=== PATIENT | female | born 1945 | race Caucasian/White ===

== ENCOUNTER 2017-07-29 07:09 | Inpatient (IN) | payer MEDICARE, OTHER ==
[~2017-07-29] VITALS: Ht 165.1 cm; Wt 72.6 kg
[~2017-07-29 07:09] MED LIST: ACETAMINOPHEN650 M3 PO; ARTHRITIS PAIN650 M1 PO; AUGMENTIN 875-1 EACH PO; CIPROFLOXACIN500 MG PO; COQ-10100 MG PO; DIGESTIVE PROB250 MG PO; DITROPAN XL10 MG PO; FLUOCINONIDE-E15 GM TOP; GLUCOSAMINE1000 MG PO; INTRINSI B12-F1 EACH PO; MACULAR HEALTH1 EACH PO; MACULAR VITAMI1 EACH PO; MILK THISTLE175 M2 PO; NITROFURANTOIN50 MG PO; NORCO 5-325 TA1 EACH PO; OMEGA 3-6-9 CO400 MG PO; OXYBUTYNIN CHLO10 MG PO; OXYBUTYNIN CHLOR5 MG PO; PREVACID15 MG PO; PROOMEGA; STELARA45 MG/0.1 SUB-Q; SULFASALAZINE500 MG PO; TYLENOL WITH C1 EACH PO; VITAMIN D-32000 UNIT PO; VITAMIN D2000 UNIT PO; [UNRECOGNIZED DRUG - OTHER]; [UNRECOGNIZED DRUG - OTHER]; [UNRECOGNIZED DRUG - OTHER] PO; [UNRECOGNIZED DRUG - OTHER] PO
--- NOTE | 2017-07-29 10:29 | NUR ---
07/29/17 Garrett9 Eunice Gonsalez 1023-PATIENT ARRIVED TO PACU ON 4L NC O2 SAT 100% PATIENT NONAROUSBALE. DRESSING TO ABDOMEN GAUZE AND TAPE CDI ICE APPLIED. BP 174/76 JAYLEEN CREW DISPATCHER AWARE NO NEW ORDERS. 1028-PATIENT MOANS TO VERBAL STIMULI AND FALLS BACK ASLEEP. EYES CLOSED.
--- NOTE | 2017-07-29 11:58 | NUR ---
RECIEVED REPORT FROM GIOVANNI. PT RESTING IN BED. DROWSY BUT EASILY AROUSABLE. AT BEDSIDE. PT RATES PAIN 04/03. DILAUDID DAIRY HUSBANDRY TEACHER SET UP. IVF INFUSING. ABX ADMINISTERED. SCDS IN PLACE. CUP OF ICE GIVEN. DRESSING INTACT. MINIMAL SHADOWING NOTED ON DISTAL END. PT DENIES FURTHER NEEDS. CALL PACK IN REACH.
--- NOTE | 2017-07-29 13:29 | NUR ---
PT RESTING IN BED. FAMILY IN ROOM. ICE CHIPS GIVEN. IVF INFUSING. ENCOURAGED USE OF TRANSPORTATION ATTENDANT. PT STATES HER ABD "STILL HURTS," BUT IT "COMES AND GOES." CALL PACK IN REACH.
--- NOTE | 2017-07-29 14:11 | NUR ---
MET WITH PT'S TIERNEY. HE WAS UPSET, AND INFORMED ME THAT DURING SCOPE, HER BOWEL WAS PERFORATED-SUBSEQUENTLY SHE WAS TAKEN RIGHT TO SURGERY. HAD PRAYER WITH TIERNEY, LET HIM VENT. WILL CONTINUE TO FOLLOW. HE HAD NOTIFIED FAMILY
--- NOTE | 2017-07-29 14:14 | NUR ---
CHECKED ON PT IN RM FOLLOWING SURGERY. FAMILY AND HER BLOW DOWN OPERATOR WERE PRESENT. SHE WAS GROGGY, BUT AWARE OF MY PRESENCE. RN MICHAEL CAME IN AND CHECKED ON HER PAIN, INSTRUCTED ON USING PHOSPHORIC ACID SUPERVISOR. SHE WAS VERY GOOD WITH PT AND HER . WILL CONTINUE TO FOLLOW NEEDED
--- NOTE | 2017-07-29 15:31 | NUR ---
PT'S RR 8-10 BREATHS PER MIN. CALLED MD. CHANGED SETTINGS ON RURAL ELECTRIFICATION ENGINEER. PT STATES PAIN AT A TOLERABLE LEVEL. PT AND FAMILY DENY NEEDS AT THIS TIME. CALL RAMONE IN REACH.
--- NOTE | 2017-07-29 16:37 | NUR ---
PT FEELING NAUSEOUS. ZOFRAN ADMINISTERED WITH NO EFFECT. CALLED MD TO OBTAIN NEW ORDER. WAITING ELECTROPLATING TECHNICIAN BACK. NOT ADMINISTERING PHENERGAN DUE TO RR OF 8.
--- NOTE | 2017-07-29 17:03 | NUR ---
PT'S RR AT 5. CALLED DR. DECKER. OBTAINED ORDER TO D/C ENVIRONMENTAL CONTROL ADMINISTRATOR AND GO BACK TO OLD DILAUDID ORDER THAT HAD BEEN D/C WHEN ENVIRONMENTAL CONTROL ADMINISTRATOR WAS INITIATED. PT STATES NAUSEA IS BETTER. CALL PACK IN REACH.
--- NOTE | 2017-07-29 18:03 | NUR ---
PT STATES SHE IS FEELING NAUSEOUS AGAIN AND WOULD LIKE SOME MEDICATION. ADMINISTERED REGLAN. CALL PACK IN REACH.
--- NOTE | 2017-07-29 19:00 | NUR ---
PT APPEARS MORE AWAKE. STATES SHE FEEL "MUCH BETTER." NO C/O NAUSEA OR PAIN. PT RESTING WITH FAMILY IN ROOM. REPORT GIVEN TO NIGHT NURSES. FAMILY AND PATIENT DENY NEEDS. IVF INFUSING. CALL PACK IN REACH.
--- NOTE | 2017-07-29 19:20 | NUR ---
SHIFT REPORT RECIEVED. PATIENT RESTING IN BED. FAMILY IN ROOM. DENIES NEEDS AT THIS TIME. CALL LIGHT IN REACH.
--- NOTE | 2017-07-29 20:05 | NUR ---
EVENING MEDS GIVEN PER ORDER. PATIENT ASSESSMNET COMPLETED AND DOCUMENTED. PATIENT AAOX3. LUNG SOUNDS CLEAR. ABD SOFT, TENDER AT INCISION ONLY, BOWEL SOUNDS ACTIVE. MIDLINE DRESSING INTACT, SOME SHADOWING NOTICED AT DISTAL END OF DRESSING. OUTLINE SHADOWING. WILL CONTINUE TO MONITOR. PULSE OX 98% ON 1L NC. IVF INFUSING, SITE WNL. SCDS IN PLACE. PATIENT DENIES NAUSEA. RATED PAIN AT 5/10. PRN PAIN MEDS GIVEN. FAMILY IN ROOM. WARM BLANKET PROVIDED. NO FURTHER NEEDS AT THIS TIME. CALL LIGHT IN REACH. BED ALARM ON.
--- NOTE | 2017-07-29 22:45 | NUR ---
PATIENT RESTING IN BED. FAMILY HAS LEFT. CARRI OX, 98% ON 1L NC. PATIENT STATES SHE FEELS MUCH BETTER, RATED PAIN AT 3/10. CALL LIGHT IN REACH. BED ALARM ON. DENIES NEEDS AT THIS TIME.
--- NOTE | 2017-07-30 00:02 | NUR ---
patient resting in bed. requested prn pain meds, pain rated 6/10. prn meds given per order. pulse ox, 98% on 1l nc. will reassess. call light in reach.
--- NOTE | 2017-07-30 00:58 | NUR ---
PATIENT REQUEST PRN PAIN MEDS. RATED PAIN AT 5/10 IN ABD. PRN PAIN MEDS GIVEN PER ORDER. PATIENT STATES HER SHOULDER IS SORE WELL. HEAT PACK PROVIDED. PATIENT DENIES NAUSEA. RR14. PULSE OX 98% ON 1L NC. CALL LIGHT IN REACH.
--- NOTE | 2017-07-30 02:10 | NUR ---
PATIENT RESTING IN BED. AROUSES WHEN RN ENTERED ROOM. DENIES NEEDS AT THIS TIME. PULSE OX 98% ON 1L NC. RR 14. CALL LIGHT IN REACH.
--- NOTE | 2017-07-30 04:13 | NUR ---
PATIENT URINE OUTPUT ON LOW SIDE OF PERAMETERS. BLADDER SCAN ATTEMPTED, MIDLINE DRESSING DOES NOT ALLOW FOR ADEQUATE SCAN. OCHOA READJUSTED, OUTPUT IMPROVED. WILL CONTINUE TO MONITOR. PATIENT REPORTS 6/10 PAIN, PRN PAIN MEDS GIVEN. PULSE OX 97% ON 1L NC.
--- NOTE | 2017-07-30 05:20 | NUR ---
PATIENT RESTED ON AND OFF THROUGHOUT SHIFT. MIDLINE DRESSING INTACT, SOME SHADOWING NOTICED ON DRESSING. MARKER FOR REFERENCE. PAIN MANAGED WITH IV PAIN MEDS X4. PATIENT AAOX3. LUNGS CLEAR. PULSE OX, O2 94-98%. 1L NC WHEN SLEEPING. ABD SOFT, TENDER AT INCISION SITE, BOWEL SOUNDS ACTIVE. OCHOA IN PLACE, OUTPUT LOWER SIDE OF PARAMETERS. IFV INFUSING, SITE WNL. DENIED NAUSEA. NPO W/1 CUP ICE Q8H & HARD CANDY. SCDS. PATIENT HAS NOT BEEN OUT OF BED.
--- NOTE | 2017-07-30 06:47 | NUR ---
DR. DECKER CALLED BACK TO RETURN YRN'S CALL. SINCE YRN WAS UNAVAILABLE, I SPOKE WITH HIM AND INFORMED HIM THAT PT ONLY HAD 90ML OF URINE OUTPUT FOR LAST 4 HOURS. RECEIVED NEW ORDERS FOR : ONE TIME LR BOLUS, OVER 4 HOURS AND TO INCREASE IVF TO 150ML/HR.
--- NOTE | 2017-07-30 06:56 | NUR ---
PATIENT REQUESTED PRN PAIN MEDICATION. PATIENT RATES PAIN AT A 7/10 IN HER MID ABD. PATIENT GIVEN PRN PAIN MEDICATION PER ORDER.
--- NOTE | 2017-07-30 07:14 | NUR ---
RECIEVED BEDSIDE REPORT FROM KENNA POOL AND KENNA PANIAGUA. PT AWAKE AND ALERT IN BED WITH AT BEDSIDE. SCANT AMOUNT OF RED DISCHARGE WITHIN OUTLINE ON ABD DRESSING. IV BOLUS RUNNING.
--- NOTE | 2017-07-30 08:29 | NUR ---
IV FLUIDS CHANGED DUE TO COMPATIBILITY. WILL CHANGE BACK ONCE ABX ARE COMPLETE.
--- NOTE | 2017-07-30 10:29 | OR ---
[facility] [place] [address], [place] [address] Signed DATE OF PROCEDURE: 07/29/17 PREOPERATIVE DIAGNOSES Screening. Perforated colon (rectosigmoid junction). POSTOPERATIVE DIAGNOSES Screening. Perforated colon (rectosigmoid junction). PROCEDURE Limited colonoscopy. Laparotomy. Colorrhaphy x1. ESTIMATED BLOOD LOSS: None. FINDINGS Payam had an abrupt angulation at the rectosigmoid junction. We had tried to pass the scope through that area and we did notice the colon was a little thin and even with gentle pressure we felt the scope give and then we saw some blood and we knew we had a perforation. I went out and explained this to her in detail. We took her immediately down the hallway to the OR and in the OR she had some adhesions of her sigmoid colon to her left fallopian tube and left pelvic sidewall and it created shape of a Z anterior to posterior and thus the sharp angulation. We could easily see the soiling and perforation from the scope and we closed that over in 2 layers with sutures. 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 She and her were planning to go out to the [facility] this coming week. It had been more than 12 years since she had her last colonoscopy with Dr. Reese Montano. She said that was negative. In the meantime, she has no lower GI complaints. Her aunt had been diagnosed and of colon cancer in her 60s. Recently, she just had her tooth removed and so she has a metal post in her left mandible. She has also had a knee replaced. In the office, I gave Payam a pamphlet on colonoscopy and we discussed the nature of the procedure along with the risks including, but not limited to gas bloating, crampy abdominal pain, bleeding, perforation requiring surgery and missed diagnosis. We also discussed the need for IV conscious sedation. She had expressed understanding and wished to proceed. PROCEDURE NOTE Payam was taken into our endoscopy suite and placed in a left lateral decubitus Electronically Signed By: GRISEL DECKER MD 07/30/17 1029 PATIENT NAME: PAYAM GALVEZ OPERATIVE REPORT DATE OF : 49 PHYSICIAN: GRISEL DECKER MD REPORT #: [id number] REPORT IS CONFIDENTIAL AND NOT TO BE RELEASED WITHOUT AUTHORIZATION [facility] [place] [address] [place] [id number] Signed position. We initially gave her 7 mg of Versed and 125 mcg of Fentanyl. She also received preoperative antibiotics. A digital rectal exam was unremarkable. The adult colonoscope was then inserted and we passed with ease up to what we felt was the rectosigmoid junction at about 20 cm. We could see the bowel was thin and we actually talked about that as we observed that area. We did have our nurse give some gentle pressure on the abdomen and we put some gentle pressure on the scope and even with gentle pressure we felt the scope give and we knew we probably had a perforation. I insufflated gently and I could see some pericolonic fat and I pulled the scope back gently and sure enough I could see some blood. Consequently, we stopped and we left the scope in place and we kept her sedated with our Versed and Fentanyl. I went out immediately to talk to Payam's . I met with Payam's . I explained to him our current situation. I explained that we needed to take her immediately down the hallway to our OR where we could perform a laparotomy and repair the perforation in 2 layers. The need for colostomy would be quite remote. I also explained the expected intraop and postop course. There is risk to the surgery including but not limited to bleeding, infection, scarring, change in con tour of the skin, damage to bowel, leak from the perforation site, damage to the ureters, incisional hernias and other unforeseen comorbidities. He had expressed understanding and wished to proceed. Payam was taken directly down to the operating room and we were able to transfer her over to our operating room table. She had already received Clindamycin but we went ahead and added some Flagyl. Chapin catheter had been inserted with return of clear yellow urine. SCDs were placed. She was then prepped and draped in the usual sterile fashion. We left the camera in the rectum hoping that it was next to her through the perforation site to help us locate that site. We then made a standard periumbilical incision and carried that in the abdomen with the help of the cautery without difficulty. Of course, we had some air come out at that time. We then placed the Bookwalter retractor and we were able to pull small intestine back and we can see that she had some redundancy to the sigmoid colon. Therefore some of that sigmoid colon was coiled back on itself in her pelvis and in the shape of a Z anteriorly to posteriorly part of it was adherent to left pelvic sidewall as well as to the left fallopian tube. Thankfully those adhesions were thin and we took those down easily with the cautery. We spread the tissue little and I could see the ureter coming over the brim of the pelvis on the left side. We could also see the ovarian vessels. In addition, we very quickly could feel the scope in the rectum and I looked, sure enough we could see a little swelling, little blood where the bowel meets the edge of the mesocolon. Once we took down the adhesions, we would easily bring the colon up from the bottom of the pelvis with the help of 2 [place] clamps. I cleared off a little fat on either side of the perforation and we closed that perforation in 2 layers with Vicryl and silk suture in standard fashion. We then took the fat and placed it back over the perforated area and we held that fat down over the suture line with Electronically Signed By: GRISEL DECKER MD 07/30/17 1029 PATIENT NAME: PAYAM GALVEZ OPERATIVE REPORT DATE OF : 49 PHYSICIAN: GRISEL DECKER MD REPORT #: [id number] REPORT IS CONFIDENTIAL AND NOT TO BE RELEASED WITHOUT AUTHORIZATION [facility] [address], [place] [address] Signed several interrupted silk sutures. After this, the pelvis and colon were copiously irrigated with warm antibiotic saline solution. We then returned the bowel to its position in the abdomen and we closed the midline with interrupted [id number] #1 PDS sutures. The wound was then irrigated and suctioned out until clear. We brought the dermis together with interrupted 3-0 subcuticular Monocryl sutures. The skin edges were then reapproximated with interrupted orville. Dry gauze and tape was then applied. We then were able to remove the colonoscope from the rectum and place it on the back table. Payam was then awakened from our anesthesia, extubated in the OR and taken to recovery room in stable condition. In the meantime, I went out and spoke with Payam's and her family. I explained to them the intraoperative findings. We anticipate that Payam is going to do well. She should be with us here around a week or so in the hospital and by the end of couple of months, she should be doing quite well. They have expressed understanding and agreed to above plan. MD CANDICE Uribe/Yecenia /[id number] cc: Franky Aleman MD Electronically Signed By: GRISEL DECKER MD 07/30/17 1029 PATIENT NAME: PAYAM GALVEZ OPERATIVE REPORT DATE OF : 49 PHYSICIAN: GRISEL DECKER MD REPORT #: [id number] REPORT IS CONFIDENTIAL AND NOT TO BE RELEASED WITHOUT AUTHORIZATION
--- NOTE | 2017-07-30 10:40 | NUR ---
ROUNDED WITH DR DECKER. PT HAS MULTIPLE FAMILY AND FRIENDS IN ROOM. DR DECKER ENCOURAGED PT TO GET UP AND GET WALKING, OK FOR SHOWER LATER, REMOVE DRESSING. MAYBE ABLE TO REMOVE OCHOA LATER THIS AFTERNOON, GIVE AN ADDITIONAL BOLUS OF FLUID FOR URINE OUTPUT.
--- NOTE | 2017-07-30 14:27 | NUR ---
MET WITH PT'S SON AND DAUGHTER IN LAW. THEY SLIPPED OUT TO TAKE A BREAK. PT AND DAD HAD BOTH FALLEN ASLEEP. HE FELT HE COULD SEE IMPROVEMENT, SEEMS OPTIMISTIC. WILL CONTINUE TO FOLLOW NEEDED
--- NOTE | 2017-07-30 15:29 | NUR ---
PT CALLED TO ADVISE SHE WAS THROWING UP. <10ML EMESIS IN BAG. PRN ZOFRAN GIVEN. PT ALSO REPORTED INCREASE IN PAIN, PRN PAIN MEDICATIONS GIVEN. PT REPORTED RELIEF FROM SYMPTOMS.
--- NOTE | 2017-07-30 17:23 | NUR ---
PT UP TO CHAIR, TOLERATED WELL. C/O MODERATE PAIN WITH MOVEMENT. OCHOA D/C'D, TOLERATED WELL. 10ML BALLOON EMPTIED. DRESSING REMOVED, SMALL AMOUNT OF BLOODY DISCHARGE ON GAUZE. SERGIO ARE INTACT, EDGES WELL APROXIMATED. NO REDNESS, SWELLING.
--- NOTE | 2017-07-30 17:29 | NUR ---
PT HAD BOLUS X2. UNRINE OUTPUT SLIGHTLY INCREASED, URINE IS CLEAR YELLOW AT THIS TIME. OCHOA IS DISCONTINUED. PT TOLERATED WELL. PT'S DRESSING WAS REMOVED, SMALL AMOUNT OF BLOODY DRAINAGE ON DRESSING. INCISION IS CLEAN AND DRY, EDGES WELL APROXIMATED. NO REDNESS OR SWELLING. SERGIO INTACT. PT PAIN IS WELL CONTROLLED WITH PRN DILAUDID. PT REPORTED NAUSEA WITH <10ML VOMIT X1, PRN ZOFRAN GIVEN AND EFFECTIVE. PT UP TO CHAIR. PT TOLERATED WELL. PT HAS DECLINED PO INTAKE, ORDER INCREASED TO 200ML Q 8HR.
--- NOTE | 2017-07-30 19:00 | NUR ---
DIDN'T TAKE SHOWER DUE TO NOT FEELING WELL TODAY.
--- NOTE | 2017-07-30 19:00 | NUR ---
SHIFT REPORT RECIEVED. PATIENT RESTING IN BED. FAMILY IN ROOM. NO NEEDS AT THIS TIME. CALL LIGHT IN REACH.
--- NOTE | 2017-07-30 20:05 | NUR ---
EVENING MEDS GIVEN PER ORDER. PATIENT REPORTS PAIN AT 6/10. PRN PAIN MEDS GIVEN. PATIENT VS WNL. LUNG CLEAR. BOWEL SOUNDS ACTIVE. ABD SOFT, TENDER. MINLINE ABD INCISION IS OPEN TO AIR, SMALL AMOUNT OF DRIED DRAINAGE. SERGIO IN TACT. IVF INFUSING, SITE WNL. SCDS ON. PATIENT REQUESTING WATER, WHICH WAS PROVIDED. NO FURTHER NEEDS AT THIS TIME. CALL LIGHT IN REACH.
--- NOTE | 2017-07-30 22:20 | NUR ---
PATIENT REQUESTING PRN PAIN MEDS. PAIN RATED 5/10 AT INCISION SITE. MEDS GIVEN PER ORDER. ICE PACK PROVIDED. NO FURTHER REQUEST. CALL LIGHT IN REACH.
--- NOTE | 2017-07-30 22:53 | NUR ---
PATIENTS IV INFILTRATED. NEW IV STARTED BY MISTY PIRESON. PATIENT TOLERATED ACTIVITY WELL. PATIENT DENIES ANY NAUSEA AT THIS TIME. PATIENTS IV FLUIDS INFUSING WELL. PATIENT GIVEN WHITE NOISE MACHINE. PATIENT DENIES ANY FURTHER NEEDS AT THIS TIME. CALL LIGHT IN REACH.
--- NOTE | 2017-07-31 00:21 | NUR ---
HEALTH POLICY ANALYST ASSISTED PATIENT UP TO THE BATHROOM. 1PA W/FWW. PATIENT REPORTS PAIN AT 5/10. REQUESTED PRN PAIN MEDS. MEDS GIVEN PER ORDER. NO FURTHER REQUEST AT THIS TIME. CALL LIGHT IN REACH.
--- NOTE | 2017-07-31 02:30 | NUR ---
PATIENT UP TO [facility]. PATIENT IS SORE BUT STEADY ON HER FEET. STAND BY ASSIST. PATIENT ASSISTED BACK TO BED AND COMPLAINED OF A HEAD ACHE. THEN BECAME NAUSEOUS. PRN MEDS FOR NAUSEA WERE GIVEN. PATIENT REPORTS NAUSEA DECREASED ABOUT 5MINS AFTER. COOL WASH CLOTH GIVEN TO APPLY TO FACE. FRESH WATER PROVIDED. PRN MEDS GIVEN FOR HEADACHE. PATIENT RESTING IN BED. EYES CLOSED. CALL LIGHT IN REACH.
--- NOTE | 2017-07-31 04:22 | NUR ---
PATIENT ASSISTED TO BCS BY LEAD JAVA J2EE DEVELOPER. STAND BY ASSIST. PATIENT REPORTS HEADACHE HAS IMPROVED, RATED 3/10. ABD PAIN IS TOLERABLE, 4/10. PATIENT ASSISTED BACK TO BED. CALL LIGHT IN REACH.
--- NOTE | 2017-07-31 05:26 | NUR ---
PATIENT RESTED OFF AND ON THROUGHOUT THE SHIFT. PAIN CONTROLLED WITH PRN PAIN MEDS X3. PRN TYLENOL GIVEN FOR HEADACHE. ONE EPISODE OF NAUSEA, PRN ZOFRAN GIVEN. NAUSEA RESOLVED. NPO, EXCEPT 200MLS CLEAR LIQUIDS Q8H. SBA TO BATHROOM. ORDERS TO AMBULATE 4 X PER DAY. PATIENT WANTS TO SHOWER TODAY. MIDLINE ABD INCISION IS OPEN TO AIR, WELL APPROXIMATED W/SERGIO. OUTPUT IS QS. IVF INFUSING. NEW IV SITE 07/30/17. ICE APPLIED TO INCISION PRN.
--- NOTE | 2017-07-31 05:45 | NUR ---
PATIENT RESTED OFF AND ON THROUGHOUT THE SHIFT. PAIN CONTROLLED WITH PRN PAIN MEDS X3. PRN TYLENOL GIVEN FOR HEADACHE. ONE EPISODE OF NAUSEA, PRN ZOFRAN GIVEN. NAUSEA RESOLVED. NPO, EXCEPT 200MLS CLEAR LIQUIDS Q8H. SBA TO BATHROOM ORDERS TO AMBULATE 4 X PER DAY. PATIENT WANTS TO SHOWER TODAY. MIDLINE ABD INCISION IS OPEN TO AIR, WELL APPROXIMATED W/SERGIO. OUTPUT IS QS. IVF INFUSING. NEW IV SITE 07/30/17. ICE APPLIED TO INCISION PRN.
--- NOTE | 2017-07-31 06:16 | NUR ---
PATIENT UP IN CHAIR. RATES PAIN AT 7/10. PRN PAIN MEDS GIVEN. IVF INFUSING, SITE WNL. ABD MINLINE INCISION IS WELL APPROXIMATED. CLEANED SKIN AROUND SITE WITH WIPES. PATIENT DENIES NAUSEA AT THIS TIME. PATIENT CALLED AND IS ON HIS WAY. PATIENT IS AWARE. NO FURTHER NEEDS AT THIS TIME. CALL LIGHT IN REACH.
--- NOTE | 2017-07-31 07:24 | NUR ---
RECIEVED BEDSIDE REPORT FROM KENNA PANIAGUA AND KENNA POOL. PT IS AWAKE AND ALERT, UP IN CHAIR. PT REPORTS NO PAIN AT THIS TIME.
--- NOTE | 2017-07-31 09:26 | NUR ---
IV INFILTRATED, NEW IV STARTED RIGHT FOREARM. PT TOLERATED WELL. IV SITE WRAPPED FOR PROTECTION. PT VOIDED 200 ML, UP IN CHAIR AT THIS TIME.
--- NOTE | 2017-07-31 18:36 | NUR ---
PT UP TO CHAIR MULTIPLE TIMES, TOLERATES WELL. PT REPORTS LESS PAIN, PRN PAIN MEDICATIONS EFFECTIVE. VOIDING WELL, NO BM AT THIS TIME. PT UP TO SHOWER WITH ASSISTANCE. FAMILY BROUGHT IN DOG.
--- NOTE | 2017-07-31 19:02 | NUR ---
SHIFT REPORT RECIEVED. PATIENT UP IN CHAIR. FAMILY IN ROOM. NO NEEDS AT THIS TIME. CALL LIGHT IN REACH.
--- NOTE | 2017-07-31 20:08 | NUR ---
PATIENT UP IN CHAIR. REQUESTING PRN PAIN MEDICATION. IV SITE FOUND TO BE INFILTRATED. KENNA RUTS PLACED NEW IV. PRN PAIN MEDS GIVEN. IV ABX STARTED PER ORDER. PATIENT RATES PAIN AT 7/10. ICE PACK PROVIDED. ABD MILINE INCISION IS OPEN TO AIR, SERGIO INTACT, WOUND WELL APPROXIMATED. SMALL AMOUNT OF DRIED BLOOD NOTED NEAR UMBILUCUS. PATIENT DENIES NAUSEA. HAS BEEN TOLERATING THE 200MLS OF WATER PO Q8HR. LUNGS ARE CLEAR AND PATIENT IS ON RA. VS WNL. FAMILY IN ROOM. NO FURTHER NEEDS AT THIS TIME. CALL LIGHT IN REACH.
--- NOTE | 2017-07-31 22:00 | NUR ---
KENNA BUENROSTRO ASSISTED PATIENT UP TO THE BATHROOM, SBA. THEN ASSISTED PATIENT INTO BED. PATIENT DENIES ANY FURTHER NEEDS AT THIS TIME. SCDS IN PLACE. CALL LIGHT IN REACH.
--- NOTE | 2017-08-01 01:58 | NUR ---
PATIENT REQUESTED PRN PAIN MEDICATION. RATED PAIN AT 6/10. MEDICATION GIVEN PER ORDER. PATIENT COMPLAINED OF A PAIN ON HER BACK. AN AREA OF SKIN THE SIZE OF A QUARTER ON THE LEFT UPPER BACK WAS RED AND NONBLANCHABLE. SKIN IS INTACT. FOAM DRESSING AND BACATRACIN OINTMENT APPLIED TO AREA. PATIENT TURNED ONTO RIGHT SIDE. CALL LIGHT IN REACH.
--- NOTE | 2017-08-01 03:07 | NUR ---
PATIENT RESTING. EYES CLOSED. STILL TURNED TO RIGHT SIDE. RR 14. CALL LIGHT IN REACH.
--- NOTE | 2017-08-01 04:24 | NUR ---
PATIENT ASSISTED TO BATHROOM. SBA. PATIENT REPORTS PAIN AT 4/10. DOES NOT REQUIRE PRN PAIN MEDICATION AT THIS TIME. BACK TO BED. REPOSITIONED ON HER LEFT SIDE. SCDS ON. MIDLINE ABD INCISION IS WELL APPOXIMATED. NO NEW DRAINAGE. CALL LIGHT IN REACH.
--- NOTE | 2017-08-01 04:35 | NUR ---
PATIENT RESTED WELL THROUGHOUT THE SHIFT. PRN PAIN MEDICATION X2. NEW IV SITE IN RAC. IVF INFUSING. ABD MIDLINE INCISION OPEN TO AIR, SERGIO ARE INTACT AND WELL APPROXIMATED. NO NEW DRAINAGE. SBA W/AMBULATION. NPO W/200ML CLEAR LIQUIDS Q8HR. NO NAUSEA REPORTED. OUTPUT QS. SCDS WHEN IN BED.
--- NOTE | 2017-08-01 06:44 | NUR ---
PATIENT SITTING UP IN CHAIR WATCHING TV. RATED PAIN AT 5/10. REQUESTING PRN PAIN MEDS. INCISION AT ABD MIDLINE HAS NO NEW DRAINAGE AND IS OPEN TO AIR. SERGIO WELL APPROXIMATED. PATIENT DENIES FURTHER NEEDS. WILL RETURN WITH PRN PAIN MEDS.
--- NOTE | 2017-08-01 06:57 | NUR ---
PRN PAIN MEDS GIVEN PER ORDER.
--- NOTE | 2017-08-01 07:25 | NUR ---
RECIEVED BEDSIDE REPORT FROM KENNA POOL AND KENNA PANIAGUA. PT UP IN CHAIR, NO CONCERNS AT THIS TIME. PT IS AWARE OF DAILY PLAN TO WALK IN THE IVAN.
--- NOTE | 2017-08-01 08:46 | NUR ---
ROUNDED WITH DR DECKER. PT IS PROGRESSING, KEEP THE PLAN OF THE DAY.
--- NOTE | 2017-08-01 14:27 | NUR ---
CALLED DR DECKER RE: PT HTN. DR DECKER STATED THAT SHE HAS HAD UNTREATED HTN IN THE PAST. VERBAL TELEPHONE ORDER OF LOPRESSOR 5MG Q 6HRS IV. HOLD FOR BP <125 OR HR <55. ALSO GAVE VERBAL TELEPHONE ORDER FOR FLUCINIDE OINTMENT, PT HOME MEDICATION. PT REQUESTS USE. APPLY SMALL AMT DAILY FOR PSORISIS.
--- NOTE | 2017-08-01 14:31 | NUR ---
Medications reconciled by pharmacist using pharmacy records and patient interview. Patient has received RX for sirolimus 2mg but has not started it yet. She will wait until after discharge before initiating this new medication.
--- NOTE | 2017-08-01 14:48 | NUR ---
PT REPORTED IV WAS "THROBBING". ON ASSESSMENT, IV FLUSHED WELL WITH NO PAIN, NO SWELLING, NO DISCOLORATIONS. PT HAD A WASHCLOTH AROUND HER ARM WHICH MAY HAVE BEEN BUNCHED UP. REAPPLIED WASHCLOTH FOR COMFORT. NO COMPLAINTS OF PAIN OR DISCOMFORT IV RAN.
--- NOTE | 2017-08-01 17:41 | NUR ---
CALLED DR DECKER RE: BP OF 210/90. VERBAL TELEPHONE ORDER OF ADD VASOTEC 0.625MG IV Q 6 HRS, HOLD IF BP <120 OR HR <55. NO HOSPITALIST CONSULT AT THIS TIME.
--- NOTE | 2017-08-01 17:53 | NUR ---
PT STATES FEELING "MUCH BETTER". MINIMAL PAIN, UP TO CHAIR AND BATHROOM. AMBULATED IN IVAN. BLOOD PRESSURE ELEVATED, MD AWARE. NEW TELEPHONE ORDERS FOR LOPRESSOR AND VASOTEC. BLOOD PRESSURE STILL ELEVATED, MD AWARE. IV FLUIDS REDUCED TO 85ML/HR.
--- NOTE | 2017-08-01 19:40 | NUR ---
RECEIVED REPORT FROM RN. PATIENT DENIES NEEDS AT THIS TIME.
--- NOTE | 2017-08-01 19:45 | NUR ---
SPOKE WITH DR DECKER RE: BLOOD PRESSURE. VERBAL ORDER TO INCREASE LOPRESSOR TO 7.5MG Q 6HR IV, HOLD IF BP <120 OR HR <55. INCREASE VASOTEC TO 1.25MG Q 6HR IV, HOLD IF BP <120 OR HR <55.
--- NOTE | 2017-08-01 20:33 | NUR ---
PATIENT RESTING IN BED COMFORTABLY. MEDICATIONS GIVEN AND ASSESSMENT DONE. PATIENT REPORTS 3/10 PAIN IN HEAD AND STATES "I FEEL VERY COMFORTABLE." CALL LIGHT WITHIN REACH.
--- NOTE | 2017-08-02 00:05 | NUR ---
PATIENT IS RESTING COMFORTABLY IN BED. BREATHING IS EVEN AND UNLABORED. REPORTS 5/10 HEADACHE, PRN TYLENOL GIVEN. DENIES FURTHER NEEDS AT THIS TIME. CALL LIGHT WITHIN REACH.
--- NOTE | 2017-08-02 01:18 | NUR ---
PATIENT RESTING COMFORTABLY IN BED. BREATHING IS EVEN AND UNLABORED. CALL LIGHT WITHIN REACH.
--- NOTE | 2017-08-02 02:20 | NUR ---
Patient up to bathroom using 1PA/non-slip socks. She is now resting comfortably in bed. Assessment done. Patient denies needs at this time.
--- NOTE | 2017-08-02 05:42 | NUR ---
PATIENT REPORTS 8/10 ABD PAIN. PRN IV DILAUDID GIVEN PER EMAR. PATIENT IS NOW RESTING COMFORTABLY IN CHAIR WATCHING TV. CALL LIGHT WITHIN REACH.
--- NOTE | 2017-08-02 06:38 | NUR ---
PATIENT'S NIGHT HAS BEEN UNEVENTFUL. SHE HAS BEEN RESTING THROUGHOUT THE SHIFT. PAIN HAS BEEN TREATED WITH PRN IV DILAUDID. EDUCATED THE PATIENT ABOUT THE IMPORTANCE OF PAIN CONTROL AND TO NOT LET PAIN GET OUT OF CONTROL. BP HAS BEEN ELEVATED WITH SYSTOLIC PRESSURE RANGING FROM 150s TO 170s. BLOOD PRESSURE MEDICATIONS HAVE NOT BEEN ADMINISTERED DUE TO HEART RATE BEING 55 AND BELOW DURING SHIFT. PATIENT HAS ALSO BEEN SYSTEMATIC WHEN STANDING AND AMBULATING REPORTING SHE "FEELS DIZZY AND CLAMMY." AFTER RETURNING PATIENT TO BED, SHE REPORTS THAT SHE "FEELS FINE." THERE WERE NO ACUTE CHANGES FROM BEGINNING OF SHIFT ASSESSMENT.
--- NOTE | 2017-08-02 07:08 | NUR ---
RECIEVED BEDSIDE REPORT FROM KENNA STANFORD. PT AWAKE AND ALERT, UP IN CHAIR. PT REPORTS FEELING "FINE", WITH PAIN WELL CONTROLLED, NO DIZZINESS, OR LIGHTHEADEDNESS.
--- NOTE | 2017-08-02 07:50 | NUR ---
PATIENT UP TO SHOWER. ORAL CARE DONE. WARM BLANKET GIVEN. PATIENT SITTING UP IN CHAIR WITH VISITOR IN ROOM. CALL BUTTON IN REACH. FRESH ICE WATER GIVEN. NO OTHER NEEDS AT THIS TIME.
--- NOTE | 2017-08-02 09:55 | NUR ---
STAND BY ASSIST TO BATHROOM. PATIENT WOULD LIKE TO GO FOR A WALK SOON. CALL BUTTON IN REACH. FRESH ICE WATER GIVEN. NO OTHER NEEDS AT THIS TIME.
--- NOTE | 2017-08-02 10:48 | NUR ---
PT UP AND IN CHAIR. STATES NO PAIN AT THIS TIME. REMINDED TO CALL WHEN PAIN STARTS, PRIOR TO BECOMING UNBEARABLE.
--- NOTE | 2017-08-02 11:00 | NUR ---
STAND BY ASSIST PATIENT BACK TO BED FROM BATHROOM. ASKED PATIENT IF SHE WANTED WALK. PATIENT STATES THAT SHE IS REALLY TIERED. WILL WALK AFTER NAP. WARM BLANKET GIVEN. CALL BUTTON IN REACH. NO OTHER NEEDS AT THIS TIME. IN ROOM.
--- NOTE | 2017-08-02 13:00 | NUR ---
1300 BLOOD PRESURE WAS 179/76, PRN HYDRALZINE HELD. NO HEADACHE, CHEST PAIN, CLAMYNESS. PRN PAIN MEDS REQUESTED, PAIN 6/10. PT IN BED, WOULD LIKE TO REST.
--- NOTE | 2017-08-02 13:50 | NUR ---
PATIENT UP TO BATHROOM AND BACK TO CHAIR STAND BY ASSIST. FRESH ICE WATER GIVEN. CALL BUTTON IN REACH. BP REPORTED TO CHARGE NURSE. NO OTHER NEEDS AT THIS TIME.
--- NOTE | 2017-08-02 17:00 | NUR ---
PATIENT SITTING UP IN CHAIR TALKING ON HER CELL PHONE. NO NEEDS AT THIS TIME.
--- NOTE | 2017-08-02 17:42 | NUR ---
PATIENT SITTING UP IN CHAIR VISITING WITH FAMILY. FRESH ICE WATER GIVEN. DINNER ORDERED. NO OTHER NEEDS AT THIS TIME. CALL BUTTON IN REACH.
--- NOTE | 2017-08-02 18:13 | NUR ---
PT HAD BETTER PAIN CONTROL THIS SHIFT. PRN DILAUDID X2. BLOOD PRESSURE BETTER CONTROLED, PRN HYDRALZINE QID IF SBP >180. NOT GIVEN THIS SHIFT. PT ADVANCED TO FULL LIQUIDS, TOLERATED WELL. AMBULATED IN IVAN AND ROOM. FAMILY VERY INVOLVED.
--- NOTE | 2017-08-02 19:04 | NUR ---
RECEIVED REPORT FROM RN. PATIENT DENIES NEEDS AT THIS TIME.
--- NOTE | 2017-08-02 19:11 | NUR ---
PATIENT AMBULATING IN HALLS AND TOLERATING WELL. NO COMPLAINTS OF DIZZINESS.
--- NOTE | 2017-08-02 19:59 | NUR ---
EVENING MEDICATIONS GIVEN, SHIFT ASSESSMENT DONE. PATIENT REPORTS 8/10 ABD PAIN, PRN IV DILAUDID GIVEN PER EMAR. APPLIED NEW ALLEVANT DRESSING TO LEFT UPPER BACK FOR SKIN ABRASION. PATIENT DENIES FURTHER NEEDS AT THIS TIME. SHE IS NOW RESTING COMFORTABLY IN BED, CALL LIGHT WITHIN REACH.
--- NOTE | 2017-08-02 22:49 | NUR ---
PATIENT REPORTS 7/10 ABD PAIN, DILAUDID 1MG IV PRN GIVEN PER EMAR. BP NOTED TO BE 190/72, PULSE 60, PRN HYDRALAZINE GIVEN PER EMAR. PATIENT RESTING COMFORTABLY IN BED, BREATHING IS EVEN AND UNLABORED, GIOVANNY LIGHT WITHIN REACH.
--- NOTE | 2017-08-03 01:34 | NUR ---
PATIENT TAKEN TO BATHROOM WITH SBA/NON-SLIP SOCKS. NOW RESTING COMFORTABLY IN BED. BREATHING IS EVEN AND UNLABORED, REPORTS 4/10 PAIN IN ABD, BUT DENIES NEED FOR PAIN MEDICATION. DENIES ANY OTHER NEEDS AT THIS TIME. CALL LIGHT WITHIN REACH.
--- NOTE | 2017-08-03 04:00 | NUR ---
PATIENT REPORTS 4/10 ABD PAIN, 2 MG IV PRN DILLAUDID GIVEN PER EMAR. PATIENT DENIES OTHER NEEDS AT THIS TIME. CALL LIGHT WITHIN REACH.
--- NOTE | 2017-08-03 04:10 | NUR ---
BP OF 179/69, PULSE OF 59. PRN PO HYDRALAZINE GIVEN.
--- NOTE | 2017-08-03 05:10 | NUR ---
PATIENT'S NIGHT HAS BEEN UNEVENTFUL. SHE HAS BEEN RESTING COMFORTABLY IN BED THROUGHOUT SHIFT. PAIN HAS BEEN WELL CONTROLLED WITH PRN IV DILAUDID. BLOOD PRESSURES HAVE BEEN ELEVATED WITH SYSTOLIC BEING BETWEEN 179 AND 190; TWO DOSES OF HYDRALAZINE GIVEN. NO ACUTE CHANGES FROM BEGINNING OF SHIFT ASSESSMENT.
--- NOTE | 2017-08-03 07:18 | NUR ---
PT WAS RESTING IN BED, MOTIONED ME IN. SHE LOOKED ALITTLE WASHED OUTIN THE FACE, BUT HER HAIR LOOKED GREAT. SHE CONFESSED THAT SHE HAS BEEN HAVING A KIND OF "MELT DOWN". SHE IS THE ONE IN THE FAMILY THAT HAS TO BE STRONG, AND SHE COULDN'T HOLD IT ANY LONGER, AND RELEASED HER EMOTION-PROBABLY FOR ALOT OF THINGS FOR ALOT OF YEARS. I GAVE HER PERMISSION TO LET HER TEARS FLOW, IT WAS OK. WE HAD PRAYER, SHE THANKED ME, WILL [id number] TO FOLLOW
--- NOTE | 2017-08-03 07:34 | NUR ---
BEDSIDE REPORT FROM [facility] RN, PT UP WITH DATE PITTER TO BATHROOM. PT ALERT AND ORIENTED REPORTS PAIN HAS INCREASED WITH ACTIVITY. WILL ADMINISTER PAIN COVERAGE.
--- NOTE | 2017-08-03 07:50 | NUR ---
PATIENT WASHED FACE AND HANDS. ORAL CARE DONE LINEN CHANGE. CALL BUTTON IN REACH. PATIENT SITTING UP IN CHAIR WAITING FOR BREAKFAST. NO OTHER NEEDS AT THIS TIME.
--- NOTE | 2017-08-03 08:45 | NUR ---
PATIENT AMBULATING IN HALLWAY WITH .
--- NOTE | 2017-08-03 09:48 | NUR ---
PATIENT WASHED UP AND HAS CLEAN GOWN. HAD A SHOWER YESTERDAY AND WOULD LIKE ONE TOMORROW. FRESH ICE WATER GIVEN. CALL BUTTON IN REACH. NO OTHER NEEDS AT THIS TIME.
--- NOTE | 2017-08-03 10:44 | NUR ---
PT SITTINGUP IN RECLINER, USING HER TABLET. NO DISTRESS NOTED. PT REPORTS NO NEEDS AT THIS TIME
--- NOTE | 2017-08-03 12:22 | NUR ---
PT UP TO AMBULATE IN HALLS, BACK TO ROOM AND THEN TO BED. PT REPORTS NO OTHER NEEDS AT THIS TIME.
--- NOTE | 2017-08-03 12:54 | NUR ---
patient resting in bed. patient states that she is in 6 out of 10 pain and would like some pain medication. RN notified. no other needs at this time.
--- NOTE | 2017-08-03 13:04 | NUR ---
STAFF WAS JUST FINISHING UP REAJUSTING PT IN BED WITH BEDDING. SHE IS ALERT AND ORIENTED. PT MENTIONED THAT SHE THOUGHT SHE IS GOING HOME TOMORROW. THIS SEEMED TO PLEASE HER. SHE IS LEARNING TO STAY ON TOP OF HER PAIN, HAS ENJOYED AMBULATING IN THE HALLS BY HERSELF. SHE GOT COFFEE TODAY-MADE THE DAY MUCH MORE ENJOYABLE TO HER. WE DISCUSSED HOW WE TOO OFTEN TAKE TOO MUCH OF LIFE FOR GRANTED. SOME SOBERING MOMENTS FOR PT THESE LAST FEW DAYS. PT REQUESTED PRAYER, SHE DID MENTION THAT HER IS GETTING OVER HIS ANGER, AND ACCEPTING THE SITUATION MUCH BETTER
--- NOTE | 2017-08-03 15:15 | NUR ---
STANDBY ASSIT TO BATHROOM. PATIENT AMBULATING IN THE HALLWAY.
--- NOTE | 2017-08-03 16:13 | NUR ---
PATIENT SITTING UP IN CHAIR WATCHING TV. NO OTHER NEEDS AT THIS TIME.
--- NOTE | 2017-08-03 17:28 | NUR ---
PT HAS BEEN UP AMBUALTING INDEPENDENTLY IN HALLS TOLERATING ACTIVITY WELL. HAS BEEN ADMINISTERED I.V. DILAUDID 1MG X3 TODAY. VOIDING WELL. FLATUS POSITIVE, BM LAST NIGHT. INCISION WELL PROXIMATED SERGIO OPEN TO AIR. TOELRATING LOW FIBER DIET WELL, NO NAUSEA.
--- NOTE | 2017-08-03 17:36 | NUR ---
CALLED AT THIS TIME TO SEE IF WOULD WANT TO CHANGE PAIN COVERAGE TO ORAL AT THIS TIME. UPDATED MD ON PT PROGRESS OF CAREPLAN. MD GAVE ORDER FOR NORCO PRN FOR PAIN
--- NOTE | 2017-08-03 18:21 | NUR ---
PATIENT SITTING UP IN CHAIR TALKING ON CELL PHONE. IN ROOM. FRESH ICE WATER GIVEN. NO OTHER NEEDS AT THIS TIME.
--- NOTE | 2017-08-03 19:15 | NUR ---
RECEIVED REPORT FROM RN. PATIENT DENIES NEEDS AT THIS TIME.
--- NOTE | 2017-08-03 20:52 | NUR ---
SHIFT ASSESSMENT DONE, EVENING MEDICATIONS GIVEN. PATIENT IS RESTING COMFORTABLY IN BED. SHE REPORTS 7/10 ABD PAIN, PRN PO NORCO GIVEN PER EMAR. PATIENT DENIES FURTHER NEEDS AT THIS TIME. CALL LIGHT WITHIN REACH.
--- NOTE | 2017-08-03 22:51 | NUR ---
PATIENT TAKEN TO BATHROOM WITH SBA/NON-SLIP SOCKS. REPORTS 3/10 ABD PAIN AND STATES "MY PAIN IS REALLY GOOD." PATIENT NOW RESTING IN BED COMFORTABLY AGAIN WITH CALL LIGHT WITHIN REACH.
--- NOTE | 2017-08-04 01:27 | NUR ---
PATIENT IS RESTING COMFORTABLY IN BED. BREATHING IS EVEN AND UNLABORED. CALL LIGHT WITHIN REACH.
--- NOTE | 2017-08-04 02:27 | NUR ---
PATIENT AMBULATED TO BATHROOM WITH SBA/NON-SLIP SOCKS. SHE IS NOW RESTING COMFORTABLY IN BED. BREATHING IS EVEN AND UNLABORED. PATIENT REPORTS 4/10 ABD PAIN, AND STATES THAT SHE DOES NOT NEED PAIN MEDICATION AT THIS TIME. SHE DENIES FURTHER NEEDS AT THIS TIME. CALL LIGHT WITHIN REACH.
--- NOTE | 2017-08-04 05:20 | NUR ---
PATIENT'S NIGHT WAS UNEVENTFUL. SHE HAS BEEN RESTING IN BED THROUGHOUT SHIFT. VSS, PAIN HAS BEEN WELL CONTROLLED WITH PRN PO NORCO. PATIENT IS NOW INDEPENDENT IN THE ROOM. INCISION REMAINS C/D/I. PATIENT HAS D5LR AT 50 ML/HR. NO ACUTE CHANGES FROM BEGINNING OF SHIFT ASSESSMENT.
--- NOTE | 2017-08-04 07:25 | NUR ---
PATIENT SITTING UP IN CHAIR. WASHED FACE AND HANDS. TALKED ABOUT A SHOWER LATER. FRESH ICE WATER AND CUP OF COFFEE GIVEN. NO OTHER NEEDS AT THIS TIME. CALL BUTTON IN REACH.
--- NOTE | 2017-08-04 07:33 | NUR ---
BEDSIDE REPORT FROM [facility] RN, PT SITTING UP IN RECLINER. PT REPORTS PAIN IS WELL MANAGED AT THIS TIME WITH NORCO PRN.
--- NOTE | 2017-08-04 08:00 | NUR ---
SPOKE WITH PATIENT IN HALLWAY WHILE WALKING. PATIENT STATES SHE FEELS "GOOD" AND IS HOPING TO GO HOME TODAY. STATES SHE IS EATING. STATES SHE HAD A BM. PATIENT STATES SHE IS GOING TO WALK THE HALLS UNTIL THE DOCTOR "LETS ME GO". PATIENT PLANS TO GO HOME WITH , DENIES BARRIERS TO THIS PLAN.
--- NOTE | 2017-08-04 08:02 | NUR ---
PT UP TO AMBULATE IN HALLS WITH SHOVEL ENGINEER AT THIS TIME.
--- NOTE | 2017-08-04 08:11 | NUR ---
PATIENT AMBULATING IN HALLWAY WITH STUDENT NURSE.
--- NOTE | 2017-08-04 09:38 | NUR ---
STOPPED IN PATIENT'S ROOM TO SEE IF SHE HAD RECEIVED INFO ON A LOW-FIBER DIET YET AND IF SHE HAD ANY QUESTIONS. HER IS VISITING. SHE IS DOING WELL AND EXPECTS TO GO HOME TODAY. NURSING DID PROVIDE PRINTED LOW-FIBER DIET INFO. I REITERATED WHAT FOODS SHE CAN HAVE FROM EACH FOOD GROUP TO MAKE SURE SHE UNDERSTANDS. SHE APPRECIATED MY VERBAL EDUCATION. IT WILL HELP HER AND HER TO ENSURE SHE IS EATING THE RIGHT FOODS TO GIVE HER GUT TIME TO HEAL. THEIR QUESTIONS WERE ANSWERED. SHE WILL DO WELL. NO OTHER NUTRITION INTERVENTION AT THIS TIME.
--- NOTE | 2017-08-04 10:40 | NUR ---
PATIENT UP TO SHOWER.
--- NOTE | 2017-08-04 11:32 | NUR ---
PT SITTING UP IN RECLIENR HAS SHOWERED, SHE REPORTS HER PAIN IS 6/10, TWO NORCO ADMINISTERED. PT IS DISCONECTED FROM I.V. FOR WALKING AT THIS TIME
--- NOTE | 2017-08-04 13:30 | NUR ---
SERGIO REMOVED FROM MIDLINE INCISION EVERYOTHER ONE, PER MD ORDER, 15 SERGIO REMOVED 17 REMAIN. PT TOELRATED WELL. I.V. SITE REMOVED WNL CATH TIP INTACT
[2017-08-04] MEDS ORDERED: NORCO 5-325 TA1 EACH PO (14:12)
[2017-08-04] MEDS ORDERED: ZOFRAN ODT4 MG PO (14:13)
--- NOTE | 2017-08-04 14:25 | NUR ---
PT DRESSED AND READY FOR DC. KENNA VILLEDA SAID JUST WAITING FOR WRITTEN ORDERS. TIERNEY THANKED ME FOR VISITS. GOD BLESS
--- NOTE | 2017-08-04 14:45 | NUR ---
DISCHARGE PACKETGIVEN WITH EDUCATION ON ACTIVITY RESTRICTIONS, FOLLOW UP APPOINTMENT, AND LOW FIBER DIET. MEDICATIONS DISCUSSED LAST DOSE NEXT DOSE, PAIN MEDICATION AND SAFE DOSE AND TITRATING DOSE DOWN PAIN IS LESS. SIGNS AND SYMPTOMS TO MONITOR THAT SHE NEEDS TO SEEK MEDICAL ATTENTION. PT AND SPOUSE IN ROOM FOR EDUCATION VERBALIZED UNDERSTANDING.
--- NOTE | 2017-08-04 15:26 | NUR ---
08/04/17 1526 Vania Herrera PLEASE SEE COLONOSCOPY CHART FOR PACU DOCUMENTATION
--- NOTE | 2017-08-06 13:16 | DS ---
[facility] [address], [place] [address] Signed DATE OF DISCHARGE: 08/04/17 FINAL DIAGNOSES Perforated distal sigmoid colon. Psoriasis with psoriatic arthropathy. Hypertension. PROCEDURES Limited colonoscopy (rectum). Laparotomy with colorrhaphy x1. HISTORY OF PRESENT ILLNESS Payam is a 71-year-old female who was asked to see me for a routine follow-up colonoscopy. She has a paternal aunt who had colon cancer in her 60s. Payam remembers a colonoscopy more than 12 years ago. To her knowledge that was negative. In addition, she has psoriasis with psoriatic arthropathy. She has been on a number of different immunosuppressive agents over the years. She is now retired and had been planning [place] . She had presented to the office as above and we had scheduled her for colonoscopy. HOSPITAL COURSE Payam was taken into the endoscopy suite on 07/29/2017. We introduced the colonoscope into the rectum and we could see that her colon was extremely thin. We made just an initial effort to pass the colon around the rectosigmoid junction and even with gentle pressure we knew we had a perforation. We could see the pericolonic fat and a little bit of blood. I had gone out and talked with Payam's immediately and reviewed with him in details her current situation. I explained to her that we need to take her directly down to the operating room to make a midline laparotomy and repair that primarily. Of course, we kept Payam sedated and with pain control. We then took her down to the operating room and we found that she had some adhesions of her sigmoid colon near the left ovary and left fallopian tube and down in the pouch of Bret. Consequently, her colon was fixed and it was never going to give as the scope was passed. We also could see that her skin was extremely thin. It is half the thickness of someone her age and also her entire small bowel wall is also extremely thin just like her colon. We could easily feel the tip of the colonoscope in the rectum and next to that was some soiling and sure enough she had a perfect 10 mm perforation through the wall of the sigmoid distal sigmoid colon where it joins the edge of the mesocolon. We repaired that easily in 2 layers and took some pericolonic fat and brought that over that and held that down with some silk sutures as well. Of course, we admit her to the hospital and kept her on IV antibiotics during her hospital stay because of her immunosuppression. She has done very well. At this point, she is eating a low residue diet. She has had multiple soft bowel movements. She has passed gas. Her abdominal exam is completely Electronically Signed By: GRISEL DECKER MD 08/06/17 1316 PATIENT NAME: PAYAM GALVEZ DISCHARGE SUMMARY DATE OF : 49 PHYSICIAN: GRISEL DECKER MD REPORT #: [id number] REPORT IS CONFIDENTIAL AND NOT TO BE RELEASED WITHOUT AUTHORIZATION [address] [address] Signed benign and her incision is healing nicely. We see no local signs or symptoms of infection with that incision. She has regained her strength. She has been ambulating well in the hallways. At this point, she has reached discharge status. In addition to the surgery, we have noticed her blood pressure ranged anywhere from [address] up to 200. We had tried a little Lopressor, but it dropped her heart rate, so we discontinued that and used Vasotec and that was not particularly successful, so we switched over to Hydralazine and that worked out nicely. Today, she is off any scheduled blood pressure medication and her systolic blood pressures have been running 130s to 160s. She has not taken blood pressure medication in the past, but she told us she does run a little high. DISCHARGE PLANS AND MEDICATIONS Payam is going to be discharged home with a prescription for [place] 5/325 one to two tablets p.o. q.4-6 hours p.r.n. pain. We will dispense 40 tablets with no refills. We will give her some Zofran 4 mg tablets 1-2 tablets sublingual q.6 hours p.r.n. for nausea and vomiting. We will dispense 10 tablets with 1 refill. She can actually resume her chronic medications including all of her vitamins. However, she is going to check with her cable armorer operator as she is in the process of changing her medications for the psoriasis, it is probably mendez to hold any immunocompromising drugs for about 2 months until the repair heals and then she will be fine. Of course, I have warned Payam that she is at much higher risk for an incisional hernia based on her current situation. She is welcomed to perform her activities of daily living including walking up and down stairs and showering and bathing as needed. She is not to lift over 20 pounds the first month and over 50 pounds the second month, and after that no restrictions. We are going to remove half the [place] and we will remove the other half when she follows up in the office in about a week. I have reviewed this with Payam and her now several days in a row. They have expressed understanding and agree to above plan. MD CANDICE Uribe/Yecenia /[id number] cc: Franky Aleman Electronically Signed By: GRISEL DECKER MD 08/06/17 1316 PATIENT NAME: LEONORPAYAMPepe MENARD DISCHARGE SUMMARY DATE OF : 49 PHYSICIAN: GRISEL DECKER MD REPORT #: [id number] REPORT IS CONFIDENTIAL AND NOT TO BE RELEASED WITHOUT AUTHORIZATION
== END 2017-08-04 14:55 | disposition home or self-care (01) | DRG 331 ==
LOC: DS 07:09 → OPS 07:09 → DSVR 09:00 → OPS 09:00 → MS 09:00 → DSVR 11:25 → MS 11:25 → DSVR 12:47 → MS 12:47
PROVIDERS: ADMIT Colon & Rectal Surgery
PROC: 0DQN8ZZ Repair Sigmoid Colon, Via Natural or Artificial Opening Endoscopic (ICD-10-PCS; principal; 2017-07-29 08:15)
DX: K63.1 Perforation of intestine (nontraumatic) (principal); I10 Essential (primary) hypertension
CPT/HCPCS: 00810; 36415; 80048; 83735; 84100; 85025; 94762; J0330; J0696; J1100; J1170; J1644; J1885; J2250; J2405; J2704; J2765; J3010; J7120

== ENCOUNTER 2017-10-11 10:22 | Emergency (ER) | payer MEDICARE, OTHER ==
[~2017-10-11] VITALS: Ht 165.1 cm; Wt 72.6 kg
[~2017-10-11 10:22] MED LIST changes: +ZOFRAN ODT4 MG PO
[2017-10-11] MEDS ORDERED: OTEZLA30 MG PO (10:48)
== END 2017-10-11 12:27 | disposition home or self-care (01) ==
LOC: ED 10:22
DX: S20.212A Contusion of left front wall of thorax, initial encounter (principal); Z90.49 Acquired absence of other specified parts of digestive tract; Z88.5 Allergy status to narcotic agent; Z98.890 Other specified postprocedural states; Z79.51 Long term (current) use of inhaled steroids; Z79.899 Other long term (current) drug therapy; W54.1XXA Struck by dog, initial encounter
CPT/HCPCS: 71020; 99283

== ENCOUNTER 2022-10-19 10:57 | Emergency (ER) | payer MEDICARE, OTHER ==
[~2022-10-19] VITALS: Ht 165.1 cm; Wt 69.0 kg
[~2022-10-19 10:57] MED LIST changes: +OTEZLA30 MG PO
== END 2022-10-19 12:13 | disposition home or self-care (01) ==
LOC: ED 10:57
DX: H16.002 Unspecified corneal ulcer, left eye (principal); K21.9 Gastro-esophageal reflux disease without esophagitis; Z88.5 Allergy status to narcotic agent; Z79.899 Other long term (current) drug therapy
CPT/HCPCS: 99283